=== PATIENT | female | born 2000 | race Caucasian/White ===

== ENCOUNTER 2022-02-05 15:59 | Emergency (ER) | payer OTHER ==
[~2022-02-05] VITALS: Ht 154.9 cm; Wt 81.6 kg
[2022-02-05 16:36] VITALS: BP 126/78
[2022-02-05] MEDS ORDERED: DOPPLER MC ONE (17:49)
--- NOTE | 2022-02-05 17:55 | NUR ---
21 Y/O FEMALE BIB SELF C/O LOW BACK PAIN S/P FALL TODAY AT 1400, PER PT SHE WAS CARRYING HER BABY WHEN SHE SLIPPED DOWN THE BOTTOM HALF OF THE STAIRS, APPROXIMATELY 3 STEPS DOWN. DENIES ANY ABD PAIN, VAGINAL BLEEDING OR DISCHARGE. NKA PMH: DENIES
--- NOTE | 2022-02-05 17:58 | NUR ---
Note carlton in EDM - 02/05/22 at 1758 by [email or web address] 5 M OLD FEMALE BIB MOTHER C/O BILATERAL EYE REDNESS, DISCHARGE AND EYELIND SWELLING X3 DAYS. MOTHER REPORTS PT HAD COUGH AND RUNNY NOSE X1 WEEK, REPORTS SISTER IS SICK AT HOME. BORN 41 WEEKS, NO COMPLICATIONS. NORMAL EATING/WET DIAPERS PMH:DENIES NKDA UTD WITH VACCINES
--- NOTE | 2022-02-05 18:08 | NUR ---
Ultrasound at bedside.
--- NOTE | 2022-02-05 19:17 | NUR ---
Pt report given to GERSON AGUIRRE. Transfer of care at this time.
--- NOTE | 2022-02-05 20:20 | NUR ---
Patient discharged with v/s stable. Written and verbal after care instructions given and explained. Patient verbalized understanding. Ambulatory with steady gait. All questions addressed prior to discharge. Advised to follow up with PMD.
== END 2022-02-05 20:20 | disposition home or self-care (01) ==
LOC: MED 15:59
DX: O9A.213 Injury, poisoning and certain other consequences of external causes complicating pregnancy, third trimester (principal); T14.90XA Injury, unspecified, initial encounter; R10.84 Generalized abdominal pain; Z3A.38 38 weeks gestation of pregnancy; W10.8XXA Fall (on) (from) other stairs and steps, initial encounter; Y93.89 Activity, other specified; Y92.89 Other specified places as the place of occurrence of the external cause; Y99.8 Other external cause status
CPT/HCPCS: 76805; 99284; Q0092